=== PATIENT | male | born 1965 | race Caucasian/White ===

== ENCOUNTER 2023-03-18 09:59 | Inpatient (IN) | payer OTHER ==
[~2023-03-18] VITALS: Ht 182.9 cm; Wt 82.6 kg
[2023-03-18 10:07] VITALS: BP 130/72
[2023-03-18 10:55] LABS: MEAN CELL VOLUME 86.3 fl (80.0-94.0); MEAN CORPUSCULAR HGB 29.4 pg (27.0-31.0); MEAN CORPUSCULAR HGB CONC 34.1 g/dl (33.0-37.0); MEAN PLATELET VOLUME 8.8 fl (9.6-12.3); PLATELET COUNT AUTOMATED 184 10*3/uL (130-400); RED CELL DISTRI WIDTH 12.6 % (0-14.5); WHITE BLOOD COUNT 5.1 10*3/uL (4.8-10.8)
[2023-03-18 10:56] LABS: MANUAL DIFF REFLEX YES
[2023-03-18] MEDS ORDERED: CARVEDILOL12.5 MG PO (11:01)
[2023-03-18] MEDS ORDERED: LISINOPRIL40 MG PO (11:01)
[2023-03-18 11:14] LABS: ATYPICAL LYMPHS 1 % (0-0); BASOPHILS 1 % (0-1); BURR CELLS FEW; PLATELET SUFFICIENCY NORMAL (NORMAL); POLYCHROMASIA SLIGHT; TOTAL CELLS COUNTED 100 #CELLS
[2023-03-18 11:20] LABS: ALKALINE PHOSPHATASE 113 U/L (46-116); BUN 11 mg/dl (9-23); CHLORIDE 92 mmol/L (98-107); POTASSIUM 4.5 mmol/L (3.4-5.1); SGPT/ALT 48 U/L (5-49); TOTAL PROTEIN 8.2 gm/dL (6.0-8.0)
[2023-03-18 11:21] LABS: ETHYL ALCOHOL < 3.0 mg/dl (<3)
[2023-03-18 11:29] LABS: URINE AMPHETAMINES Negative (1000ng/ml); URINE BARBITURATES Negative (200ng/ml); URINE BENZODIAZEPINES Negative (200ng/ml); URINE CANNABINOIDS (THC) Negative (50ng/ml); URINE COCAINE Negative (300ng/ml); URINE METHADONE Negative (300ng/ml); URINE OPIATES Negative (300ng/ml); URINE PHENCYCLIDINE Negative (25ng/ml)
[2023-03-18 11:38] LABS: BILIRUBIN 1+ (Negative); BLOOD Negative (Negative); CLARITY Clear (Clear); COLOR Dark Yellow (Yellow); GLUCOSE Negative (Negative); KETONE 1+ (Negative); LEUKO ESTERASE Trace (Negative); NITRITE Negative (Negative)
[2023-03-18 12:11] LABS: BACTERIA 2+
[2023-03-18 12:58] VITALS: BP 125/84
[2023-03-18 14:38] VITALS: BP 132/71
[2023-03-18 18:10] LABS: BUN 12 mg/dl (9-23); CHLORIDE 96 mmol/L (98-107); POTASSIUM 4.1 mmol/L (3.4-5.1)
[2023-03-18 19:59] LABS: BUN 13 mg/dl (9-23); CHLORIDE 97 mmol/L (98-107); POTASSIUM 4.4 mmol/L (3.4-5.1)
[2023-03-18 20:00] VITALS: BP 113/50
[2023-03-18 22:23] LABS: BUN 15 mg/dl (9-23); CHLORIDE 98 mmol/L (98-107); POTASSIUM 4.1 mmol/L (3.4-5.1)
[2023-03-19] VITALS (7 sets, daily range): BP systolic 90–118; BP diastolic 49–83
[2023-03-19 02:18] LABS: BUN 17 mg/dl (9-23); CHLORIDE 99 mmol/L (98-107); POTASSIUM 3.8 mmol/L (3.4-5.1)
[2023-03-19 06:04] LABS: HEMATOCRIT 38.8 % (42.0-52.0); MEAN CELL VOLUME 86.4 fl (80.0-94.0); MEAN CORPUSCULAR HGB 29.4 pg (27.0-31.0); MEAN PLATELET VOLUME 9.1 fl (9.6-12.3); PLATELET COUNT AUTOMATED 186 10*3/uL (130-400); RED BLOOD COUNT 4.49 10*6/uL (4.50-5.90); RED CELL DISTRI WIDTH 13.1 % (0-14.5); WHITE BLOOD COUNT 4.3 10*3/uL (4.8-10.8)
[2023-03-19 06:09] LABS: MANUAL DIFF REFLEX YES
[2023-03-19 06:13] LABS: ALKALINE PHOSPHATASE 94 U/L (46-116); BUN 14 mg/dl (9-23); CHLORIDE 100 mmol/L (98-107); LIPASE 39 U/L (12-53); POTASSIUM 3.7 mmol/L (3.4-5.1); SGPT/ALT 39 U/L (5-49); TOTAL PROTEIN 6.6 gm/dL (6.0-8.0)
[2023-03-19 06:54] LABS: TOTAL CELLS COUNTED 100 #CELLS
[2023-03-19 06:55] LABS: BURR CELLS FEW; PLATELET SUFFICIENCY NORMAL (NORMAL); POLYCHROMASIA SLIGHT
[2023-03-20] VITALS: BP 94/51
[2023-03-20 04:25] LABS: ALKALINE PHOSPHATASE 97 U/L (46-116); BUN 19 mg/dl (9-23); CHLORIDE 103 mmol/L (98-107); POTASSIUM 3.7 mmol/L (3.4-5.1); SGPT/ALT 42 U/L (5-49); TOTAL PROTEIN 6.6 gm/dL (6.0-8.0)
[2023-03-20 08:00] VITALS: BP 105/56
[2023-03-20 12:00] VITALS: BP 124/63
[2023-03-20 16:00] VITALS: BP 119/64
[2023-03-20 20:00] VITALS: BP 116/66
[2023-03-21] VITALS: BP 100/45
[2023-03-21 05:19] LABS: ALKALINE PHOSPHATASE 114 U/L (46-116); BUN 13 mg/dl (9-23); CHLORIDE 104 mmol/L (98-107); POTASSIUM 3.9 mmol/L (3.4-5.1); SGPT/ALT 41 U/L (5-49); TOTAL PROTEIN 7.2 gm/dL (6.0-8.0)
[2023-03-21 08:00] VITALS: BP 97/54
== END 2023-03-21 09:30 | disposition home or self-care (01) | DRG 640 ==
LOC: ED 09:59 → EDHOLD 12:11 → 5E 12:11 → EDHOLD 12:12 → 5E 14:24
PROVIDERS: Family Medicine; Internal Medicine Nephrology; Student in an Organized Health Care Education/Training Program; ADMIT Emergency Medicine; ATTEND Emergency Medicine
DX: E87.1 Hypo-osmolality and hyponatremia (principal); E43 Unspecified severe protein-calorie malnutrition; F10.20 Alcohol dependence, uncomplicated; E87.8 Other disorders of electrolyte and fluid balance, not elsewhere classified; I10 Essential (primary) hypertension; F17.210 Nicotine dependence, cigarettes, uncomplicated; R80.0 Isolated proteinuria; R74.01 Elevation of levels of liver transaminase levels; E88.09 Other disorders of plasma-protein metabolism, not elsewhere classified; R73.9 Hyperglycemia, unspecified; Z83.3 Family history of diabetes mellitus; Z71.6 Tobacco abuse counseling; Z68.24 Body mass index [BMI] 24.0-24.9, adult